=== PATIENT | female | born 1950 | race Caucasian/White ===

== ENCOUNTER 2018-06-30 14:57 | Outpatient (CLI) | payer MEDICARE, BC | END 2018-06-30 14:58 | disposition home or self-care (01) | LOC: BICMAMMO 14:57 | PROVIDERS: ATTEND Internal Medicine | DX: Z12.31 Encounter for screening mammogram for malignant neoplasm of breast (principal); R92.1 Mammographic calcification found on diagnostic imaging of breast | CPT/HCPCS: 77063; 77067 ==

== ENCOUNTER 2019-11-23 15:13 | Outpatient (CLI) | payer MEDICARE, BC ==
--- NOTE | 2019-11-23 16:06 | MMO ---
Bilateral MAMMO Bilat Screen [facility]. CLINICAL HISTORY: Patient is 69 years old and is seen for screening. The patient has no family history of breast cancer. The patient has no personal history of cancer. VIEWS: The views performed were: bilateral craniocaudal with tomosynthesis and bilateral mediolateral oblique with tomosynthesis. FILMS COMPARED: The present examination has been compared to prior imaging studies performed at [facility] on 06/17/2017 and 06/30/2018, and at [facility] on 05/17/2013 and 12/07/2013. This study has been interpreted with the assistance of computer-aided detection. MAMMOGRAM FINDINGS: The breasts are heterogeneously dense, which could obscure a lesion on mammography. Finding 1: There are stable benign appearing calcifications seen in both breasts. Finding 2: There are stable benign appearing densities seen in both breasts. There are no suspicious masses, suspicious calcifications, or new areas of architectural distortion. IMPRESSION: THERE IS NO MAMMOGRAPHIC EVIDENCE OF MALIGNANCY. A ROUTINE FOLLOW-UP MAMMOGRAM IN 1 YEAR IS RECOMMENDED. THE RESULTS OF THIS EXAM WERE SENT TO THE PATIENT. ACR BI-RADS Category 2 - Benign finding MAMMOGRAPHY NOTE: 1. A negative mammogram report should not delay a biopsy if a dominant of clinically suspicious mass is present. 2. Approximately 10% to 15% of breast cancers are not detected by mammography. 3. Adenosis and dense breasts may obscure an underlying neoplasm. Reported by: HAYDEN SHULTZ MD Electonically Signed: [id number]
== END 2019-11-23 15:14 | disposition home or self-care (01) ==
LOC: BICMAMMO 15:13
PROVIDERS: ATTEND Internal Medicine
DX: Z12.31 Encounter for screening mammogram for malignant neoplasm of breast (principal)
CPT/HCPCS: 77063; 77067

== ENCOUNTER 2020-08-07 07:59 | Outpatient (CLI) | payer MEDICARE, BC ==
--- NOTE | 2020-08-07 08:45 | ULT ---
ABDOMINAL AORTIC ULTRASOUND: HISTORY: Screening for abdominal aortic aneurysm. FINDINGS: Maximum aortic dimension proximally 1.6 cm. There is evidence for atherosclerotic calcific change. No evidence for iliac artery aneurysms. The bifurcation region appears unremarkable. IMPRESSION: No evidence for abdominal aortic, bifurcation, or proximal iliac artery aneurysm. Evidence for atherosclerotic cardiovascular disease of the aorta. POS: RRE
== END 2020-08-07 08:00 | disposition home or self-care (01) ==
LOC: BICULT 07:59
PROVIDERS: ATTEND Internal Medicine
DX: Z13.6 Encounter for screening for cardiovascular disorders (principal); I70.0 Atherosclerosis of aorta
CPT/HCPCS: 76775

== ENCOUNTER 2020-08-29 10:00 | Outpatient (CLI) | payer MEDICARE, BC ==
--- NOTE | 2020-08-29 12:19 | BD ---
DEXA BONE DENSITY STUDY: Date: 08/29/2020 HISTORY: 70-year-old postmenopausal female for screening. FINDINGS: Lumbar Spine: BMD (g/cm2) L1 0.897 T-Score: -0.8 L2 0.847 T-Score: -1.6 L3 0.813 T-Score: -2.5 L4 0.815 T-Score: -2.2 L1-L4 0.839 T-Score: -1.9 Left Femoral Neck: 0.653 T-Score: -1.8 Total Femur: 0.940 T-Score: 0.0 IMPRESSION: Osteopenia. This patient has a 10 year WHO fracture risk for a major osteoporotic fracture of 10% and for a hip fracture of 1.5%. POS: EAA
== END 2020-08-29 10:01 | disposition home or self-care (01) ==
LOC: BICMAMMO 10:00
PROVIDERS: ATTEND Internal Medicine
DX: Z13.820 Encounter for screening for osteoporosis (principal); N95.9 Unspecified menopausal and perimenopausal disorder; M85.89 Other specified disorders of bone density and structure, multiple sites
CPT/HCPCS: 77080

== ENCOUNTER 2020-11-12 08:18 | Outpatient (CLI) | payer MEDICARE, BC ==
--- NOTE | 2020-11-12 09:41 | MMO ---
Bilateral MAMMO Bilat Diag [facility]. CLINICAL HISTORY: Patient is 70 years old and is seen for diagnostic exam and palpable abnormality in the left breast. The patient has no family history of breast cancer. The patient has no personal history of cancer. VIEWS: The views performed were: bilateral craniocaudal with tomosynthesis; bilateral mediolateral oblique with tomosynthesis; and bilateral mediolateral with tomosynthesis. FILMS COMPARED: The present examination has been compared to prior imaging studies performed at [facility] on 06/17/2017, 06/30/2018, 11/23/2019 and 11/12/2020. This study has been interpreted with the assistance of computer-aided detection. MAMMOGRAM FINDINGS: The breasts are heterogeneously dense, which could obscure a lesion on mammography. Benign calcifications are noted bilaterally. New density is seen in the left lower outer breast corrresponding to palpable mass at 4:00 which is solid on US. Additional solid mass is also seen at 3:00 on US. Both these masses should be biopsied. In the right breast, there are no suspicious masses, calcifications or areas of architectural distortion. IMPRESSION: FINDING IN THE LEFT BREAST IS SUSPICIOUS. AN ULTRASOUND-GUIDED BREAST BIOPSY IS RECOMMENDED. THE RESULTS OF THIS EXAM WERE SENT TO THE PATIENT. ACR BI-RADS Category 4 - Suspicious abnormality - biopsy should be considered D/w pt in person and Dr Margarita Ryder over the phone. MAMMOGRAPHY NOTE: 1. A negative mammogram report should not delay a biopsy if a dominant of clinically suspicious mass is present. 2. Approximately 10% to 15% of breast cancers are not detected by mammography. 3. Adenosis and dense breasts may obscure an underlying neoplasm. Reported by: KATIA ALEJANDRA MD Electonically Signed: [id number]
--- NOTE | 2020-11-12 10:16 | ULT ---
LEFT BREAST ULTRASOUND: Date: 11/12/2020 HISTORY: Palpable mass in left breast. FINDINGS: Correlation made with mammogram of same date. Sonographic evaluation of the region of palpable concern at the 4 o'clock position of the left breast , 3.0 cm from the nipple, demonstrates a 2.0 x 1.2 x 1.5 cm solid mass corresponding to the mammograp hic finding. Additionally, there is a similar smaller solid mass measuring 8.0 x 9.0 x 8.0 mm at the 3 o'clock pos ition of the left breast, 4.0 cm from the nipple. Sonographic evaluation of the left axilla demonstrates no suspicious lymph nodes. IMPRESSION: BI-RADS Category 4 - Suspicious abnormality. Ultrasound-guided biopsies of the left breast masses rec ommended. Discussed in person with the patient at 9:[address] Margarita Franklin at 9:20 a.m. POS: OFF
== END 2020-11-12 08:19 | disposition home or self-care (01) ==
LOC: BICMAMMO 08:18
PROVIDERS: ATTEND Internal Medicine
DX: N63.23 Unspecified lump in the left breast, lower outer quadrant (principal)
CPT/HCPCS: 76642; 77066; G0279

== ENCOUNTER → 2020-11-18 | Day surgery (SDC) | payer MEDICARE, BC ==
--- NOTE | 2020-11-18 13:46 | MMO ---
FILMS COMPARED: The present examination has been compared to prior imaging studies performed at [facility] on 06/30/2018, 11/23/2019 and 11/12/2020. MAMMOGRAM FINDINGS: The breast is heterogeneously dense, which could obscure a lesion on mammography. There is a new biopsy clip seen in the left breast. IMPRESSION: NEW BIOPSY CLIP IN THE LEFT BREAST IS CONFIRMED UTILIZING POST PROCEDURE MAMMOGRAM. Reported by: CLARISA MCKEE MD Electonically Signed: [id number]
--- NOTE | 2020-11-18 14:03 | ULT ---
EXAM: Ultrasound-guided left breast biopsy 3:00 Ultrasound-guided left breast biopsy 4:00 PROVIDED CLINICAL HISTORY: Left breast masses COMPARISON: Diagnostic mammogram and ultrasound 11/12/2020 FINDINGS: Limited sonographic interrogation was performed of the left breast, with localization of the previous ly described masses at 3 and 4:00. Informed consent was obtained from the patient. The skin overlying this region was prepped and draped in the usual sterile manner and the soft tissues anesthe tized with 1% buffered lidocaine. Attention was first directed to the 3:00 breast lesion. A small skin incision was made. Continuous sonographic guidance was utilized to obtain a core sample of this lesion, subsequent to which the lesion resolved. Scant tissue was obtained from the biopsy pass and fluid was demonstrated within the biopsy trocar. Attention was then turned to the 4:00 breast lesion. Continuous ultrasound guidance was utilized to obtain 4 core samples of the mass. Subsequently, continuous ultrasound guidance was utilized to place a biopsy site marker. [place] were withdrawn and hemostasis achieved. No immediate complications. IMPRESSION: 1. Technically successful 3:00 left breast biopsy. This lesion resolved after the first pass, compati ble with a cyst. Scant tissue was obtained and sent for histologic analysis. Please correlate with histology results to follow. 2. Technically successful 4:00 left breast biopsy. Please correlate with histology results to follow.
== END ==
LOC: BICULT 12:49
PROVIDERS: ATTEND Internal Medicine
PROC: 0H9U3ZX Drainage of Left Breast, Percutaneous Approach, Diagnostic (ICD-10-PCS; principal; 2020-11-18)
DX: C50.512 Malignant neoplasm of lower-outer quadrant of left female breast (principal)
CPT/HCPCS: 19083; 19084; 88305; 88341; 88342

== ENCOUNTER 2020-11-28 14:00 | Outpatient (CLI) | payer MEDICARE, BC | END 2020-11-28 14:01 | disposition home or self-care (01) | LOC: ULT 14:00 | PROVIDERS: ATTEND Internal Medicine Hematology & Oncology | DX: Z51.11 Encounter for antineoplastic chemotherapy (principal); C50.919 Malignant neoplasm of unspecified site of unspecified female breast; I08.1 Rheumatic disorders of both mitral and tricuspid valves; Z79.899 Other long term (current) drug therapy | CPT/HCPCS: 93306 ==

== ENCOUNTER 2021-10-08 10:32 | Outpatient (CLI) | payer MEDICARE, BC | END 2021-10-08 10:33 | disposition home or self-care (01) | LOC: BICMAMMO 10:32 | PROVIDERS: ATTEND Internal Medicine Hematology & Oncology | DX: C50.412 Malignant neoplasm of upper-outer quadrant of left female breast (principal); N63.15 Unspecified lump in the right breast, overlapping quadrants | CPT/HCPCS: 76642; 77065; G0279 ==

== ENCOUNTER 2021-10-22 18:18 | Emergency (ER) | payer MEDICARE, BC ==
[~2021-10-22 18:18] MED LIST: Iopamidol 370 76% 100 ML VIAL ONE
[2021-10-22] MEDS ORDERED: Ondansetron PF 4 MG/2 ML Vial ONE (19:15)
[2021-10-22] MEDS ORDERED: Morphine 4 MG/ML VIAL ONE (19:15)
[2021-10-22 19:22] LABS: Bilirubin Negative (Negative); Blood, Urine Negative (Negative); Clarity Clear (Clear); Glucose, Urine (Dipstick) Normal (Negative); Ketone, Urine Negative (Negative); Leukocyte Negative Leu/uL (Negative); Nitrite Negative (Negative); Protein, Urine (Dipstick) Negative (Neg-Trace); Specific Gravity, Urine 1.004 (1.002-1.036); Urobilinogen Normal mg/dL (Less than 2)
[2021-10-22 19:23] LABS: #Eosinphils 0.1 thou/uL (0.0-0.7); #Lymphocytes 2.1 thou/uL (1.20-3.40); #Monocytes 0.4 thou/uL (0.11-0.59); #Neutrophils 3.2 thou/uL (1.40-6.50); %Basophils 0.7 % (0.0-1.0); %Eosinophils 1.5 % (0.0-10.0); %Lymphocytes 36.3 % (21.0-51.0); %Neutrophils 55.5 % (42.0-75.0); Hemoglobin 10.2 g/dL (12.0-16.0); Mean Corpuscular HGB CONC 34.3 g/dL (32.0-36.0); Mean Corpuscular Hemoglobin 24.5 pg (27.0-31.0); Mean Corpuscular Volume 71.6 fL (78.0-98.0); Mean Platelet Volume 5.6 fL (7.4-10.4); Platelet Count 71 thou/uL (130-400); RBC Distribution Width 16.3 % (11.5-14.5); Red Blood Cell (RBC) Count 4.17 mill/uL (4.20-5.40); White Blood Cell (WBC) Count 5.7 thou/uL (4.8-10.8)
[2021-10-22 19:34] LABS: PTT 27.7 sec (22.9-36.1)
[2021-10-22 19:37] LABS: Anisocytosis SLIGHT = 6-15 cells (100X) (0-5/hpf); Hypochromia SLIGHT = 6-15 cells (100X) (0-5/hpf); MDiff Complete? YES; Microcytosis SLIGHT = 6-15 cells (100X) (0-5/hpf); Ovalocytes SLIGHT = 2-5 cells (100X) (0-1/hpf); Platelet Morphology Comment Appears Decreased; Poikilocytosis SLIGHT = 6-15 cells (100X) (0-5/hpf); Polychromasia SLIGHT = 2-3 cells (100X) (0-2/hpf); Tear Drops SLIGHT = 2-5 cells (100X) (0-1/hpf)
[2021-10-22] MEDS ORDERED: Pantoprazole 40 MG VIAL ONE (19:41)
[2021-10-22 19:42] LABS: ALT (SGPT) 34 U/L (8-55); AST (SGOT) 39 U/L (5-34); Albumin 4.2 g/dL (3.4-4.8); Alkaline Phosphatase 81 U/L (40-110); Anion Gap 15 mmol/L (10-20); BUN (Urea Nitrogen) 11 mg/dL (9.8-20.1); Bilirubin, Total 1.7 mg/dL (0.2-1.2); Calc. Creatinine Clearance 0 mL/min (70-130); Calcium 9.8 mg/dL (7.8-10.44); Carbon Dioxide 25 mmol/L (23-31); Chloride 102 mmol/L (98-107); Globulin 2.7 g/dL (2.4-3.5); Glucose 195 mg/dL (80-115); Iron 114 ug/dL (50-170); Iron Binding Capacity, Total 361 mcg/dL (265-497); Lipase 42 U/L (8-78); Potassium 3.7 mmol/L (3.5-5.1); Protein, Total 6.9 g/dL (5.8-8.1); Sodium 138 mmol/L (136-145)
== END 2021-10-22 21:10 | disposition home or self-care (01) ==
LOC: ERS 18:18
DX: R10.31 Right lower quadrant pain (principal); R10.32 Left lower quadrant pain; C50.912 Malignant neoplasm of unspecified site of left female breast; M79.605 Pain in left leg; M79.604 Pain in right leg; I10 Essential (primary) hypertension; E11.40 Type 2 diabetes mellitus with diabetic neuropathy, unspecified
CPT/HCPCS: 36415; 71045; 74177; 80053; 81003; 82274; 82728; 83540; 83550; 83690; 85025; 85610; 85730; 86850; 86900; 86901; 87086; 93005; 96374; 96375; C9113; J2270; J2405

== ENCOUNTER 2022-01-20 09:01 | Outpatient (CLI) | payer MEDICARE, BC ==
[~2022-01-20 09:01] MED LIST changes: +ADENOSINE 60 MG/20 ML VIAL ONE; -Iopamidol 370 76% 100 ML VIAL ONE
== END 2022-01-20 09:02 | disposition home or self-care (01) ==
LOC: NM 09:01
PROVIDERS: ATTEND Internal Medicine
DX: R00.2 Palpitations (principal)
CPT/HCPCS: 78452; 93017; 93225; 93226; A9500; J0153

== ENCOUNTER 2022-07-23 18:23 | Emergency (ER) | payer MEDICARE, BC ==
[2022-07-23] MEDS ORDERED: HYDROcodone/Acetaminophen 5/325 mg Tablet ONE (20:18)
== END 2022-07-23 20:33 | disposition home or self-care (01) ==
LOC: ERS 18:23
DX: S82.61XA Displaced fracture of lateral malleolus of right fibula, initial encounter for closed fracture (principal); E11.9 Type 2 diabetes mellitus without complications; I10 Essential (primary) hypertension; W19.XXXA Unspecified fall, initial encounter
CPT/HCPCS: 27781

== ENCOUNTER 2022-11-16 08:31 | Outpatient (CLI) | payer MEDICARE, BC | END 2022-11-16 08:32 | disposition home or self-care (01) | LOC: BICMAMMO 08:31 | PROVIDERS: ATTEND Internal Medicine Hematology & Oncology | DX: C50.412 Malignant neoplasm of upper-outer quadrant of left female breast (principal) | CPT/HCPCS: 76642; 77065; G0279 ==

== ENCOUNTER 2023-11-25 13:08 | Outpatient (CLI) | payer MEDICARE | END 2023-11-25 13:09 | disposition home or self-care (01) | LOC: BICMAMMO 13:08 | PROVIDERS: ATTEND Internal Medicine Hematology & Oncology | DX: Z08 Encounter for follow-up examination after completed treatment for malignant neoplasm (principal); Z85.3 Personal history of malignant neoplasm of breast | CPT/HCPCS: 77065; G0279 ==